=== PATIENT | male | born 1970 | race Caucasian/White ===

== ENCOUNTER 2016-11-04 15:50 | Emergency (ER) | payer OTHER ==
[~2016-11-04] VITALS: Ht 177.8 cm; Wt 85.7 kg
[~2016-11-04 15:50] MED LIST: ASPIRIN81 M2 PO; ATORVASTATIN CA80 MG PO; BRILINTA90 MG PO; LISINOPRIL2.5 MG PO; LOPRESSOR25 MG PO; NITROSTAT0.4 MG SL
[2016-11-04 18:34] VITALS: BP 124/75
== END 2016-11-04 18:35 | disposition home or self-care (01) ==
LOC: EME 15:50 → EXP 15:50
DX: S90.111A Contusion of right great toe without damage to nail, initial encounter (principal); V91.39XA Hit or struck by falling object due to accident to unspecified watercraft, initial encounter; Y99.0 Civilian activity done for income or pay; I25.2 Old myocardial infarction
CPT/HCPCS: 73630; 99281; 99283; J1885